=== PATIENT | male | born 1990 | race African-American/Black ===

== ENCOUNTER 2017-10-04 14:35 | Emergency (ER) | payer OTHER ==
[2017-10-04 14:45] VITALS: BMI 32.5
--- NOTE | 2017-10-04 14:59 | PDOC ---
Attending Attestation - HPI HPI: 10/04/17 16:58 CC: Syncope, cough, chest tightness. HPI: The patient is a 26 year old male, with no significant past medical history, who presents to the emergency department with, one episode of syncope this afternoon. As per patient, he has 2 days of a dry cough and chest stiffness when coughing which was not relieved on Robitussin which he went to urgent care. As per patient, he began to feel uncomfortable while sitting, as if he was overheating, and he began to lose his hearing. The last thing the patient remembers is taking off his hat and mask. His syncope was witnessed by his who reports it lasted 2-3 minutes. Upon waking up, he reports confusion. The patient reports getting oxygen at the urgent care and began to feel better. As per patient, he has a history of passing out as a child. He denies urinary or fecal incontinence. He denies any recent nausea, vomit, diarrhea or constipation. Allergies: Seafood Past surgical history: None reported. Social History: Nonsmoker. Denies EtOH use and recreational drug use. Primary Care Physician: Dr. Paradise Reyna ROS: A complete review of 10 out of 10 review of systems is taken and is negative apart from what is previously mentioned below and in the HPI. - Physicial Exam PE: 10/04/17 16:59 Vitals: Triage Vital signs reviewed General Appearance: no acute distress, well nourished well developed, Head: Atraumatic, normocephalic Nose: Nares patent bilaterally;no nasal congestion Neck: Supple;No Nuchal rigidity Chest Wall: Nontender Cardiac: Regular rate and rhythm, no murmurs, no rubs, no gallops, Lungs: +Bronchospasm with cough. Abdomen: Soft, nondistended, normal bowel sounds, nontender to palpation Rectal: Exam deferred Extremities: Full range of motion to all extremities, no cyanosis, clubbing, or edema Skin: Warm and dry, no rashes or lesions, no petechiae Neuro: AOX3; Cranial Nerves 2-12 grossly intact, Strength intact to all extremities, Sensation intact to all extremities Psych: normal mood, normal affect - Medical Decision Making 10/04/17 17:06 Patient is a 26 year old male with no past medical history who reports to the emergency room with one episode of syncope this afternoon. Plan is to perform an EKG, labs, CT of the head, chest X-Ray, and administer both fluids and breathing treatment. EKG performed at 15:48 demonstrates rate of 80bpm, rhythm of normal sinus rhythm , axis equal to equal. EXAM: HEAD CT WITHOUT CONTRAST HISTORY: Rule out mass COMPARISON: None. FINDINGS: No intra or extra-axial hemorrhage or collection. No mass lesion or midline shift. There is a 6 mm left basal ganglia hypodensity which may be an incidental Virchow-Stuart space. Lacunar infarct is thought to be less likely The ventricles are normal in size and are midline in position. Normal lindsey-white matter differentiation. The calvarium is intact. The visualized paranasal sinuses and mastoid air cells are clear. Read by: Estiven So MD <Sheridan Solano - Last Filed: 10/04/17 18:07> - Resident Resident Name: Eleonora Fofana - ED Attending Attestation I have performed the following: I have examined & evaluated the patient, The case was reviewed & discussed with the resident, I agree w/resident's findings & plan, Exceptions are as noted - Medical Decision Making 10/04/17 17:54 26 years old no syncope past medical history presents to the emergency department status post syncopal episode. Patient was sitting in a hot doctor's office "felt dizzy lightheaded and passed out. Patient has had multiple episodes of syncope in the past no cardiac risk factors Here in the emergency department laboratory analysis within normal limits patient feels much better after DuoNeb he recently has had a URI/flulike symptoms which is 2-year-old daughter has a same symptoms Well-appearing no apparent distress nontoxic-appearing history examination consistent with vasovagal syncope. We will discharge with Ventolin MDI for cough recommended fluids Tylenol Motrin for fever body aches and PCP follow-up Findings, the need for follow-up, strict return instructions discussed with patient. <Keo Nelson - Last Filed: 10/04/17 19:00> Attestations - Attestations 10/04/17 17:17 Documentation prepared by Sheridan Solano, acting as medical record technician for Keo Nelson MD. <Sheridan Solano - Last Filed: 10/04/17 18:07> - Attestations Physician Attestation: 10/04/17 19:00 A portion of this note was documented by scribe services under my direction I reviewed the details of note within reason and agree with the documentation with the following case summary and management plan written by me <Koe Nelson - Last Filed: 10/04/17 19:00>
--- NOTE | 2017-10-04 14:59 | PDOC ---
History of Present Illness - General Chief Complaint: Syncope/Near Syncope Stated Complaint: COUGHING, CHEST PAIN, BACK PAIN Time Seen by Provider: 10/04/17 14:58 History Source: Patient Exam Limitations: No Limitations - History of Present Illness Initial Comments: 10/04/17 15:30 26 y/o M with no significant PMH who presents to the ED s/p possible syncopal episode this afternoon. As per pt, yesterday, he developed a dry cough which was not alleviated with Robitussin. Pt subsequently woke up with chills this AM and went to urgent care. While he was in the waiting room, states that he took a nap and when he woke up, she saw him gagging as if he was about to vomit. witnessed his eyes roll to the back of his head. Pt was unresponsive for 2-3 minutes while sitting in the chair, and without tonic- clonic movements, or urinary or bowel incontinence. After the event, pt was confused and endorsed generalized SHIELDS. While in urgent care, he was given oxygen , which improved his condition. Pt denied palpitations or change in emotions before the event. Also denies fever, SOB, N/V/D. 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 Smokes cigars daily, denies alcohol or recreational drug use. Past History - Past Medical History Allergies/Adverse Reactions: Allergies Allergy/AdvReac Type Severity Reaction Status Date / Time shellfish derived Allergy Vomiting Verified 10/04/17 17:07 SEAFOOD Allergy Swelling Uncoded 10/04/17 14:41 Home Medications: Ambulatory Orders Albuterol Sulfate Inhaler - [Ventolin Hfa Inhaler -] 1 - 2 inh PO Q4H PRN #1 inhaler 10/04/17 COPD: No - Immunization History Immunization Up to Date: Yes - Suicide/Smoking/Psychosocial Hx Smoking History: Current every day smoker Number of Cigarettes Smoked Daily: 5 Information on smoking cessation initiated: No Hx Alcohol Use: No Drug/Substance Use Hx: No Substance Use Type: None Review of Systems - Review of Systems Able to Perform ROS?: Yes Is the patient limited Hungarian proficient: No Constitutional: Yes: Chills Respiratory: Yes: Cough Neurological: Yes: Headache *Physical Exam - Vital Signs Last Vital Signs Temp Pulse Resp BP Pulse Ox 99.1 F 99 H 20 132/77 98 10/04/17 14:42 10/04/17 14:42 10/04/17 14:42 10/04/17 14:42 10/04/17 14:42 - Physical Exam General Appearance: Yes: Appropriately Dressed HEENT: positive: EOMI, EMGHA, Pharynx Normal Neck: positive: Supple Respiratory/Chest: positive: Lungs Clear, Normal Breath Sounds Cardiovascular: positive: Regular Rhythm, Regular Rate Vascular Pulses: Dorsalis-Pedis (R): 2+, Doralis-Pedis (L): 2+ Gastrointestinal/Abdominal: positive: Normal Bowel Sounds, Soft Male Genitalia: positive: inguinal hernia Musculoskeletal: positive: Normal Inspection Extremity: positive: Normal Range of Motion Neurologic: positive: print developer II-XII NML intact, Motor Strength 5/5 ED Treatment Course - LABORATORY CBC & Chemistry Diagram: 10/04/17 15:45 10/04/17 15:45 Medical Decision Making - Medical Decision Making 10/04/17 15:48 26 y/o M with no significant PMH who presents to the ED s/p possible syncopal episode this afternoon. Pt with possible syncope, different presentation as he was sitting in a chair. Pt without witnessed tonic-clonic movements or urinary/ fecal incontinence. However absence seizure vs. syncopal episode. Will get EKG to determine if arrythmia, cardiac causes, CT head - to r/o any mass causing seizure focus. Will order CBC with diff BMP CT-head non-con CXR Orthostatics 1 L NS *DC/Admit/Observation/Transfer Diagnosis at time of Disposition: Syncope Qualifiers: Syncope type: vasovagal syncope Qualified Code(s): R55 - Syncope and collapse - Discharge Dispostion Disposition: HOME Condition at time of disposition: Stable Admit: No - Prescriptions Prescriptions: Albuterol Sulfate Inhaler - [Ventolin Hfa Inhaler -] 1 - 2 inh PO Q4H PRN #1 inhaler PRN Reason: Short Of Breath/Wheezing - Referrals Referrals: Paradise Reyna MD [Primary Care Provider] - - Patient Instructions Additional Instructions: You were in the hospital today because you passed out. While you were in the emergency room, you had an EKG done which was normal, as well as a CT scan of your head while was normal. We recommend that you drink plenty of fluids to help you recover. We are also sending you home with an inhaler. You may take this every 4 hours, when you feel short of breath. We also recommend that you take motrin or tylenol for any pain. Please follow up with your primary care doctor in one week. If you develop any severe shortness of breath, chest pain, or any other severe symptoms, please go to the hospital. We hope you feel better. - Post Discharge Activity Forms/Work/School Notes: Back to Work
[2017-10-04] MEDS ORDERED: SODIUM CHLORIDE 1,000 ML IV STA (15:35)
[2017-10-04 16:13] LABS: BASO % 0.4 % (0-2.0); EOS % 0.3 % (0-4.5); HEMATOCRIT 43.6 % (35.4-49); LYMPH % 7.1 % (8-40); MCH 29.1 pg (25.7-33.7); MCHC 34.4 g/dl (32.0-35.9); MEAN CELL VOLUME 84.6 fl (80-96); MEAN PLT VOLUME 10.5 fl (7.5-11.1); MONO % 10.1 % (3.8-10.2); NEUT % 82.1 % (42.8-82.8); PLATELET COUNT 161 K/MM3 (134-434); RBC 5.15 M/mm3 (4.00-5.60); RDW 13.6 % (11.9-15.9); WHITE BLOOD COUNT 10.1 K/mm3 (4.0-10.0)
[2017-10-04 16:38] LABS: ANION GAP 7 (8-16); BLOOD UREA NITROGEN 8 mg/dL (7-18); CALCIUM 8.5 mg/dL (8.5-10.1); CHLORIDE 104 mmol/L (98-107); CO2 26 mmol/L (21-32); CREATININE 1.1 mg/dL (0.7-1.3); GLUCOSE,RANDOM 90 mg/dL (74-106); POTASSIUM 4.1 mmol/L (3.5-5.1); SODIUM 137 mmol/L (136-145)
[2017-10-04] MEDS ORDERED: ALBUTEROL SO4 2.5/IPRATROPIUM 0.5 INH SOL 3 ML VIAL.NEB. NEB ONE ×3 (16:47→18:09)
[2017-10-04] MEDS ORDERED: ACETAMINOPHEN 1000 MG/100 ML VIAL (NON FORMULARY) IVPB ONE (17:59)
[2017-10-04] MEDS ORDERED: ACETAMINOPHEN INJECTION 100 ML IVPB ONE (18:09)
[2017-10-04 18:38] VITALS: BP 115/61; PULSE 89; TEMP 100
--- NOTE | 2017-10-05 11:09 | EKG ---
Test Reason : Blood Pressure : / mmHG Vent. Rate : 080 BPM Atrial Rate : 080 BPM P-R Int : 142 ms QRS Dur : 086 ms QT Int : 330 ms P-R-T Axes : 054 039 005 degrees QTc Int : 380 ms NORMAL SINUS RHYTHM NORMAL ECG NO PREVIOUS ECGS AVAILABLE Confirmed by DIONICIO WNIN MD ([id number]) on 10/05/2017 11:09:16 AM Referred By: Confirmed By:DIONICIO WINN MD
== END 2017-10-04 18:52 | disposition home or self-care (01) ==
LOC: JER 14:35
PROC: 3E0F7GC Introduction of Other Therapeutic Substance into Respiratory Tract, Via Natural or Artificial Opening (ICD-10-PCS; principal; 2017-10-04)
PROC: 3E0F7GC Introduction of Other Therapeutic Substance into Respiratory Tract, Via Natural or Artificial Opening (ICD-10-PCS; 2017-10-04)
DX: R55 Syncope and collapse (principal)
CPT/HCPCS: 36415; 70450-TC; 71045-TC-FY; 80048; 85025; 93005; 93010; 99285-25; J0131; J7030

== ENCOUNTER 2018-11-02 12:23 | Emergency (ER) | payer OTHER ==
[2018-11-02 12:35] VITALS: BP 146/82; PULSE 80; TEMP 97.5; BMI 32.5
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
[2018-11-02] MEDS ORDERED: CYCLOBENZAPRINE HCL 10 MG TABLET (FP) PO ONE (13:27)
[2018-11-02] MEDS ORDERED: IBUPROFEN 400 MG TABLET (FP) PO ONE ×2 (13:27→13:32)
[2018-11-02] MEDS ORDERED: CYCLOBENZAPRINE HCL 10 MG TABLET (FP) ONE (13:32)
== END 2018-11-02 14:34 | disposition home or self-care (01) ==
LOC: JERFT 12:23
DX: M62.830 Muscle spasm of back (principal); M54.5 Low back pain; V43.52XA Car driver injured in collision with other type car in traffic accident, initial encounter; Y92.414 Local residential or business street as the place of occurrence of the external cause; Y93.89 Activity, other specified; Y99.8 Other external cause status; I10 Essential (primary) hypertension; Z91.013 Allergy to seafood
CPT/HCPCS: 70450-TC; 99281-25